=== PATIENT | male | born 1995 | race Asian ===

== ENCOUNTER 2021-01-05 15:07 | Inpatient (IN) ==
[2021-01-05 17:18] LABS: Basophils # 0.1 10*3/uL (0.0-0.2); Basophils % 0.6 % (0.0-0.8); Eosinophils % 0.1 % (0.00-10.9); Hematocrit 25.5 VOL% (42.0-52.0); Hemoglobin 8.9 GM/DL (14.0-18.0); Immature Granulocytes % 16.4 %; Immature Granulocytes Absolute 3.26 #; Lymphocytes # 2.7 10*3/uL (1.4-4.0); Lymphocytes % 13.7 % (21.2-54.2); Mean Corpuscular HGB Conc 34.9 GM/DL (32-36); Mean Corpuscular Volume 87.9 FL (87-102); Mean Platelet Volume 10.9 FL (9.6-12.0); Monocytes % 8.9 % (1.7-12.7); NRBC # 0.28 10*3/uL; Neutrophils % 60.3 % (38.7-73.9); Platelet Count 74 T/CUMM (130-400); Red Cell Distribution Width 14.8 % (9.3-17.3); White Blood Count 19.9 T/CUMM (4-12)
[2021-01-05 17:30] LABS: INR 0.9; PT Patient Result 10.6 SECS (10.5-12.0); Partial Thromboplastin Time < 20.0 SECS (23.9-33.8)
[2021-01-05 17:41] LABS: Band Neutrophils 6 % (0-10); Lymphocytes 15 % (20-55); Metamyelocytes 10 %; Myelocytes 11 %; Segmented Neutrophils 49 % (50-85); Total Cells Counted 100
[2021-01-05 17:55] LABS: Anisocytosis 2+; Atypical Lymphocytes 2+; Macrocytosis 1+; Microcytosis 2+; Platelet Estimate Decreased; Polychromasia 1+
[2021-01-05 17:56] LABS: Poikilocytosis Few; Tear Drop Cells Few
[2021-01-05 18:02] LABS: Dohle Bodies 2+; Toxic Granulation 2+
[2021-01-05] MEDS ORDERED: ENOXAPARIN 30 MG/0.3 ML SYRINGE SUBCUT STA (18:05)
[2021-01-05] MEDS ORDERED: ENOXAPARIN 120 MG/0.8 ML SYRINGE SUBCUT ONE (18:15)
[2021-01-05 18:16] LABS: Bilirubin,Total 0.7 MG/DL (0.2-1.0); Calcium 9.2 MG/DL (8.5-10.1)
[2021-01-05 18:17] LABS: Albumin 4.1 G/DL (3.4-5.0); Osmolality,Calculated 284.8 MOS/KG (273-304)
[2021-01-05] MEDS ORDERED: GLUCAGON 1 MG VIAL IM PRN (18:45)
[2021-01-05] MEDS ORDERED: ZALEPLON 5 MG CAPSULE PO PRN (18:45)
[2021-01-05] MEDS ORDERED: DEXTROSE 50% 25 GM/50 ML VIAL IV PRN (18:45)
[2021-01-05] MEDS ORDERED: MORPHINE 4 MG/1 ML VIAL IV PRN (18:45)
[2021-01-05] MEDS ORDERED: ONDANSETRON 4 MG/2 ML VIAL IV PRN (18:45)
[2021-01-06 05:44] LABS: Albumin 3.8 G/DL (3.4-5.0); Bilirubin,Total 1.3 MG/DL (0.2-1.0); Osmolality,Calculated 281.5 MOS/KG (273-304); Potassium 3.9 MMOL/L (3.5-5.1); Total Protein 7.1 G/DL (6.4-8.2)
[2021-01-06] MEDS ORDERED: ENOXAPARIN 120 MG/0.8 ML SYRINGE SUBCUT SCH (06:00)
[2021-01-06 06:17] LABS: Risk Ratio 6.33; Thyroid Stimulating Hormone 0.566 uIU/ml (0.358-3.74)
[2021-01-06 06:19] LABS: Basophils # 0.1 10*3/uL (0.0-0.2); Basophils % 0.4 % (0.0-0.8); Eosinophils # 0.1 10*3/uL (0.0-0.87); Eosinophils % 0.3 % (0.00-10.9); Hematocrit 23.9 VOL% (42.0-52.0); Hemoglobin 8.2 GM/DL (14.0-18.0); Immature Granulocytes % 17.6 %; Immature Granulocytes Absolute 3.36 #; Lymphocytes # 3.2 10*3/uL (1.4-4.0); Lymphocytes % 16.5 % (21.2-54.2); Mean Corpuscular HGB Conc 34.3 GM/DL (32-36); Mean Corpuscular Volume 90.2 FL (87-102); Monocytes % 9.5 % (1.7-12.7); NRBC # 0.27 10*3/uL; Neutrophils % 55.7 % (38.7-73.9); Platelet Count 83 T/CUMM (130-400); Red Blood Count 2.65 MC/CUMM (3.8-5.5); Red Cell Distribution Width 15.3 % (9.3-17.3); White Blood Count 19.1 T/CUMM (4-12)
[2021-01-06] MEDS: ENOXAPARIN 30 MG/0.3 ML SYRINGE SUBCUT SCH ×2 (06:21→18:16)
[2021-01-06] MEDS: ENOXAPARIN 80 MG/0.8 ML SYRINGE SUBCUT SCH ×2 (06:21→18:16)
[2021-01-06 06:37] LABS: Band Neutrophils 6 % (0-10); Hypochromasia 1+; Lymphocytes 27 % (20-55); Microcytosis 1+; Nucleated Red Blood Cells 2 (0-5); Platelet Estimate Decreased; Segmented Neutrophils 53 % (50-85); Total Cells Counted 100
[2021-01-06 06:38] LABS: Atypical Lymphocytes 1+
[2021-01-06 06:40] LABS: % Iron Saturation 50.2 % (18-50); Ferritin 1798.1 ng/ml (26-388)
[2021-01-06 07:16] LABS: Folate > 24.00 NG/ML (5.38-24.0); Vitamin B12 > 2000 PG/ML (211-911)
[2021-01-06 07:18] LABS: Sedimentation Rate-Westergren 60 MM/HR (0-15)
[2021-01-06] MEDS ORDERED: DEXTROSE 50% 25 GM/50 ML VIAL IV PRN (12:04)
[2021-01-06] MEDS ORDERED: GLUCAGON 1 MG VIAL IM PRN (12:04)
[2021-01-06] MEDS: INSULIN GLARGINE 100 UNIT/ML SUBCUT SCH (13:00)
[2021-01-06] MEDS: INSULIN LISPRO 100 UNIT/ML SUBCUT SCH ×2 (17:25→21:09)
[2021-01-07] MEDS: ENOXAPARIN 80 MG/0.8 ML SYRINGE SUBCUT SCH (05:35)
[2021-01-07] MEDS: ENOXAPARIN 30 MG/0.3 ML SYRINGE SUBCUT SCH (05:35)
[2021-01-07 07:07] LABS: Beta HCG Titer < 1.00 mIU/ml (0-1)
[2021-01-07] MEDS: INSULIN GLARGINE 100 UNIT/ML SUBCUT SCH (09:19)
[2021-01-07] MEDS: INSULIN LISPRO 100 UNIT/ML SUBCUT SCH ×2 (09:19→12:07)
[2021-01-07 12:03] VITALS: BP 128/81
[2021-01-07] MEDS ORDERED: glipiZIDE 5 MG TABLET PO SCH (16:30)
[2021-01-07] MEDS ORDERED: metFORMIN 500 MG TABLET PO SCH (17:00)
[2021-01-07] MEDS ORDERED: RIVAROXABAN 15 MG TABLET PO SCH (17:00)
[2021-01-08 08:41] LABS: Hb A 93.9 % (95.8-98.0); Hb A2 2.4 % (2.0-3.3); Hb F 3.7 % (0.0-0.9)
[2021-01-08] MEDS ORDERED: INSULIN GLARGINE 100 UNIT/ML SUBCUT SCH (09:00)
[2021-01-08 09:10] LABS: Hemoglobin A1 (Alkaline) 93.1 % (96.5-98.5); Hemoglobin A2 (Alkaline) 2.8 % (1.5-3.5); Hemoglobin F (Alkaline) 4.1 %
== END 2021-01-07 14:55 | disposition home health service (06) | DRG 176 ==
LOC: N.ED 15:07 → SUATTDRO 18:45 → N.EDINP 18:45 → N.4E 20:05
PROVIDERS: ADMIT Internal Medicine; ATTEND Hospitalist